=== PATIENT | male | born 1965 | race Caucasian/White ===

== ENCOUNTER 2024-12-15 17:11 | Outpatient (REF) | payer OTHER, SELFPAY | END 2024-12-15 17:12 | disposition home or self-care (01) | LOC: LBN 17:11 | PROVIDERS: PCP Internal Medicine; Visit Provider Physician Assistant Medical | DX: J02.9 Acute pharyngitis, unspecified (principal) | CPT/HCPCS: 87070 ==

== ENCOUNTER 2025-02-01 10:11 | Emergency (ER) | payer OTHER, SELFPAY ==
[2025-02-01 10:20] VITALS: BP 171/96; PULSE 56; RESP 20; TEMP 36.7; O2SAT 98
--- NOTE | 2025-02-01 10:54 | ED.GENADUL_ITS ---
Discharge Plan Disposition Patient Disposition: Home Condition: Stable Discharge Details Clinical Impression: Right groin pain, Acute right flank pain Primary Care Provider: Hernán Allan ED Provider: Leola Syed Home Meds and New Rx's Prescriptions: Continued bupropion HCl [Wellbutrin XL] 300 mg tablet extended release 24 hr 300 mg PO QAM citalopram [Celexa] 40 MG tablet 40 mg PO DAILY atorvastatin 20 mg tablet 20 mg PO DAILY Patient Comments: TAKE ONE TABLET BY MOUTH EVERY DAY Discharge Instructions Instructions: Managing acute pain at home, Pelvic Pain ED Additional Instructions: At this time no evidence of testicular torsion there is small bilateral hydroceles which is just a little bit of fluid around the testicles. You may wear supportive underwear for this or apply some ice to the area as tolerated. No evidence of kidney stone or infection or acute bleeding on the CT exam or your labs. Please apply ice on and off for the next couple of days, please take Tylenol or Ibuprofen with food every 4-6 hours as needed for pain and swelling. Follow up with primary care provider in 3-5 days. Return to ED sooner if any worsening or concerns. Thank you for allowing us to care for you today. Referrals: Hernán Allan [Primary Care Provider, Medicine] - 1 week Referral Note: Postop checkup, right groin pain Discharge Data Discharge Date/Time-TO BE ENTERED AT DEPARTURE: 02/01/25 14:02 HPI General Mode of arrival: ambulatory . Date/Time Provider Initiated Documentation: 02/01/25 10:17 . Limitations to Documentation: no limitations . Information obtained by: patient, RN notes reviewed and old records reviewed . HPI Narrative: 59-year-old male presents to the ER accompanied by his with a chief complaint of right testicular pain which he noticed around 4 this morning when he got up to urinate. Worse with standing. Has continued to increase in pain now rating up into his right flank. Denies any dysuria or burning with urination no penile discharge no lesions noted. Denies any recent injuries however he did have a colonoscopy at [facility] on Friday. Denies any nausea vomiting diarrhea. Past medical history includes hyperlipidemia olecranon bursitis Related Data Home Medications ?Medication ?Instructions ?Recorded ?Confirmed citalopram 40 mg tablet (Celexa) 40 mg PO DAILY 02/01/25 bupropion HCl 300 mg 24 hr tablet, 300 mg PO QAM 07/0902/01/25 extended release (Wellbutrin XL) atorvastatin 20 mg tablet 20 mg PO DAILY 02/01/2501/12 Allergies Allergy/AdvReac Type Severity Reaction Status Date / Time No Known Allergies Allergy Verified 02/01/25 10:19 General Stated Complaint: Male Reproductive Problem MARCELLO: 3 Review of Systems All systems reviewed & are unremarkable except as noted in HPI and below Gastrointestinal Gastrointestinal: Denies abdominal pain, Denies diarrhea, Denies nausea and Denies vomiting Genitourinary Genitourinary: Reports as per HPI, Denies dysuria, Reports flank pain, Denies penile discharge, Reports scrotal swelling, Reports testicular pain and Reports urinary hesitancy Exam General: CVA tenderness on the right Male General Exam: Yes erythema, No inguinal lymphadenopathy, No lacerations, No perineal induration and Yes tenderness Penis: normal penis, not edematous, not erythematous, no swelling, no ulcerations and no vesicles Meatus: meatus normal and no meatla discharge Scrotum: cremasteric reflex absent on the left, no ecchymosis, not edematous, erythematous, no inguinal hernias, no masses, no scrotal swelling, no ulcerations and no varicoceles Testes: no blue dot sign, no epidiymal masses, no testicular mass, testicular tenderness on the right, high-riding testicle on the right and other (Small redness in the right groin no induration or discharge) Course Vital Signs Vital signs: Vital Signs Temperature 36.7 C 02/01/25 10:20 Pulse 56 L 02/01/25 10:20 Respiratory Rate 02/01/25 10:20 Blood Pressure 171/96 H 02/01/25 10:20 Pulse Oximetry 98 02/01/25 10:20 Temperature 36.7 C 02/01/25 10:20 Temperature Source Oral 02/01/25 10:20 Pulse 56 L 02/01/25 10:20 Respiratory Rate 02/01/25 10:20 Blood Pressure 171/96 H 02/01/25 10:20 Blood Pressure Position Sitting 02/01/25 10:20 Pulse Oximetry 98 02/01/25 10:20 Oxygen Delivery Method Room Air 02/01/25 10:20 Oxygen Flow Rate 0 02/01/25 10:20 Pain Level 7 02/01/25 10:20 Medical Decision Making 59-year-old male presents to the ER accompanied by his with a chief complaint of right testicular pain which he noticed around 4 this morning when he got up to urinate. Worse with standing. Has continued to increase in pain now rating up into his right flank. Denies any dysuria or burning with urination no penile discharge no lesions noted. Denies any recent injuries however he did have a colonoscopy at [facility] on Friday. On exam he does have a high riding testicle, some mild erythema noted to his right groin, no lesions noted, absent cremasteric reflex on the right. Tenderness noted with palpation. No obvious hernias noted, Ultrasound scrotum ordered stat and urinalysis in lab. Will give ibuprofen and Zofran. Differential diagnosis includes but not limited to UTI, muscular strain, epididymitis, varicoceles, kidney stone, testicular torsion. Pulmonary result of the ultrasound is bilateral hydroceles informed by tech no testicular torsion. Will order CBC CMP and CT imaging to rule out kidney stone or other abnormality. No leukocytosis, CMP largely within normal limits no evidence of urinary tract infection. CT shows no acute intra-abdominal abnormality, there is some cholelithiasis without surrounding fluid or evidence of cholecystitis. Discussed labs and results with patient and family who verbalized understanding. Discharged in hemodynamically stable condition. Mother at questions were answered to the best of my ability. This text was generated using [employer] dictation system, please disregard any oddities of phrase or misspellings. Medical Records Medical records reviewed: Yes I reviewed the patient's medical records. Lab Data Lab results reviewed: Yes I reviewed the patient's lab results. Labs: Laboratory Tests Range/Units 02/01/25 02/01/25 10:26 11:42 WBC (4.4-10.8) 10^3/uL 5.64 RBC (4.36-5.78) 10^6/uL 5.32 Hgb (13.5-17.5) g/dL 15.0 Hct (40.0-50.0) % 44.8 MCV (80-95) fL 84 MCH (27.0-33.0) pg 28.2 MCHC (32.0-36.0) % 33.5 RDW (11.8-14.1) % 12.3 Plt Count (130-400) 10^3/uL 217 MPV (8.0-11.0) fL 10.5 Immature Gran % % 0.2 Neutrophils % % 71.6 Lymphocytes % % 19.9 Monocytes % % 6.0 Eosinophils % % 1.6 Basophils % % 0.7 Nucleated RBC % (0.0-0.3) % 0.0 Absolute Neutrophils (1.2-6.7) 10^3/uL 4.04 Absolute Lymphocytes (1.2-3.4) 10^3/uL 1.12 L Absolute Monocytes (0.1-0.8) 10^3/uL 0.34 Absolute Eosinophils (0.0-0.7) 10^3/uL 0.09 Absolute Basophils (0.0-0.2) 10^3/uL 0.04 Sodium (136-145) mmol/L 139 Potassium (3.5-5.1) mmol/L 4.1 Chloride (98-107) mmol/L 105 Carbon Dioxide (21.0-32.0) mmol/L 26.1 Anion Gap (3-11) mmol/L 7.9 BUN (7-18) mg/dL 11 Creatinine (0.70-1.30) mg/dL 1.0 Est GFR (CKD-EPI 2020) (mL/min/1.73m2) 87.24 Glucose (74-106) mg/dL 104 Calcium (8.5-10.1) mg/dL 9.3 Total Bilirubin (0.2-1.0) mg/dL 0.9 AST (15-37) U/L 28 ALT (16-63) U/L 44 Alkaline Phosphatase (46-116) U/L 87 Total Protein (6.4-8.2) g/dL 7.5 Albumin (3.4-5.0) g/dL 3.9 Urine Color (Yellow) Yellow Urine Clarity (Clear) Clear Urine pH (5-8) 6.5 Ur Specific Markle (1.005-1.025) 1.020 Urine Protein (Neg-Trace) mg/dL Negative Urine Ketones (Negative) mg/dL Negative Urine Blood (Negative) Negative Urine Nitrite (Negative) Negative Urine Bilirubin (Negative) Negative Urine Urobilinogen (Up to 0.2) mg/dL 0.2 Ur Leukocyte Esterase (Negative) Negative Urine Glucose (Negative) mg/dL Negative PFSH All Active Problems Acute right flank pain (Acute) Right groin pain (Acute) Olecranon bursitis of left elbow (Acute ~04/2024) Social History Smoking/Tobacco Use Status: Never Smoking risk assessment performed?: Yes Drug use: Never Housing: house Do you feel safe at home: Yes Do you feel safe in your relationship?: Yes
--- NOTE | 2025-02-01 10:55 | DI.US_ITS ---
Exam(s) US SCROTUM EXAM: US SCROTUM CLINICAL HISTORY: Right testicular pain. TECHNIQUE: Scrotal ultrasound performed using grayscale, color-flow and spectral Doppler analysis. COMPARISON: No exams were available for comparison FINDINGS: RIGHT TESTICLE: 4.6 x 2.4 x 3.6 cm Echogenicity: Normal. Contour: Smooth. Mass: None seen. Microlithiasis: None. Hydrocele: Small Varicocele: None. Hernia: No peristalsing bowel loop identified. Epididymis: Normal. Scrotum: Normal. LEFT TESTICLE: 3.9 x 2.9 x 3.3 cm Echogenicity: Normal. Contour: Smooth. Mass: None seen. Microlithiasis: None. Hydrocele: Small Varicocele: None. Hernia: No peristalsing bowel loop identified. Epididymis: Normal. Scrotum: Normal. DOPPLER: Color: Symmetric and uniform, no hyperemia. Duplex: Bilateral testicular arterial waveforms visualized. IMPRESSION: Normal appearing bilateral testicles. Small bilateral hydroceles. DATA REPOSITORY:
[2025-02-01 11:03] LABS: Glucose Negative (Negative)
--- NOTE | 2025-02-01 11:15 | DI.CT_ITS ---
Exam(s) CT ABDOMEN PELVIS W EXAM: CT ABDOMEN PELVIS W CLINICAL HISTORY: Right flank pain, S/P colonoscopy. TECHNIQUE: Imaging Protocol: Axial computed tomography images with coronal and sagittal reformatted images were created and reviewed CONTRAST MATERIAL: Intravenous: Omnipaque 350 Contrast volume:100 ml Oral: no COMPARISON: No exams were available for comparison FINDINGS: ABDOMEN and PELVIS: Lung Bases: No acute findings. Liver: Mild hepatic steatosis. No suspicious mass. Gallbladder and biliary tract: A few tiny calculi are noted in the dependent portion no wall thickening or pericholecystic fluid. No biliary dilation. Pancreas: Normal density. No abnormal calcifications or inflammatory process. No evidence of mass. Spleen: Normal. Kidneys: Normal size, contour and axis. No radiodense stones. No obstructive uropathy. No suspicious masses seen. Adrenal glands: No masses seen. Vasculature: Abdominal aorta non-dilated. Soft tissues: Unremarkable. Bladder: No gross wall thickening. No calculi.No focal mass. Bowel: No obstruction. No bowel wall thickening. Appendix normal. Peritoneal cavity: No ascites. No focal collection. No mesenteric inflammatory response. No free air. Bones: Unrem mild scoliosis and degenerative changes. Reproductive organs: The prostate is enlarged and contains calcifications. Lymph nodes: No pathologically enlarged lymph nodes. IMPRESSION:: No acute abnormality in the abdomen or pelvis. Cholelithiasis. RADIATION DOSE DELIVERED: 634mGy.cm Total DLP DATA REPOSITORY: All CT scans at this facility are submitted to the National Radiology Data Registry (NRDR) Dose Index Registry (DIR) with the [employer] (ACR). RADIATION OPTIMIZATION: All CT scans at this facility use at least one of these dose optimization techniques: automated exposure control; mA and/or kV adjustment per patient size (includes targeted exams where dose is matched to clinical indication); or iterative reconstruction.
[2025-02-01 11:56] LABS: Abs Immature Grans 0.01 10^3/uL (0.0-0.06); HCT 44.8 % (40.0-50.0); HGB 15.0 g/dL (13.5-17.5); Immature Grans % 0.2 %; MCH 28.2 pg (27.0-33.0); MCHC 33.5 % (32.0-36.0); MCV 84 fL (80-95); MPV 10.5 fL (8.0-11.0); Platelet Count 217 10^3/uL (130-400); RBC 5.32 10^6/uL (4.36-5.78); RDW 12.3 % (11.8-14.1); RDW-SD 37.2 fL; WBC 5.64 10^3/uL (4.4-10.8)
[2025-02-01] MEDS: ACETAMINOPHEN 1,000 MG/100 ML BAG 400 MG IVPB (12:03)
[2025-02-01 12:12] LABS: ALT 44 U/L (16-63); AST 28 U/L (15-37); Albumin 3.9 g/dL (3.4-5.0); Alkaline Phosphatase 87 U/L (46-116); Anion Gap 7.9 mmol/L (3-11); BUN 11 mg/dL (7-18); Bilirubin, Total 0.9 mg/dL (0.2-1.0); CO2 26.1 mmol/L (21.0-32.0); Calcium 9.3 mg/dL (8.5-10.1); Chloride 105 mmol/L (98-107); Estimated GFR 87.24 (mL/min/1.73m2); Glucose 104 mg/dL (74-106); Potassium 4.1 mmol/L (3.5-5.1); Sodium 139 mmol/L (136-145); Total Protein 7.5 g/dL (6.4-8.2)
[2025-02-01] MEDS: Omnipaque 350 MG/ML 100 ML BTL IJ (12:32)
[2025-02-01] MEDS: Normal Saline - Diluent 50 ML VIAL IJ (12:33)
[2025-02-01 13:45] VITALS: BP 152/78; PULSE 58; RESP 20; TEMP 36.7; O2SAT 98
== END 2025-02-01 14:02 | disposition home or self-care (01) ==
PROVIDERS: Emergency Provider Registered Nurse Emergency; PCP Internal Medicine
DX: R10.31 Right lower quadrant pain (principal); N43.3 Hydrocele, unspecified
CPT/HCPCS: 80053; 96365; 99285; 74177; 76870; 81003; 85025; J0131; J3490

== ENCOUNTER 2025-04-13 08:31 | Outpatient (CLI) | payer OTHER, SELFPAY | END 2025-04-13 08:32 | disposition home or self-care (01) | PROVIDERS: PCP Internal Medicine; Visit Provider Urology | DX: R97.20 Elevated prostate specific antigen [PSA] (principal) | CPT/HCPCS: 36415; 84153 ==

== ENCOUNTER 2025-04-17 18:10 | Emergency (ER) | payer OTHER, SELFPAY ==
[2025-04-17] VITALS (17 sets, daily range): BP systolic 121–130; BP diastolic 66–75; PULSE 86–98; RESP 18; TEMP 37.6; O2SAT 92–98
--- NOTE | 2025-04-17 18:28 | W.ED.GENAD ---
Discharge Plan Disposition Patient Disposition: Home Discharge Details Clinical Impression: Enteritis, Elevated bilirubin Primary Care Provider: Hernán Allan ED Provider: Galina Brian Home Meds and New Rx's Prescriptions: No Action bupropion HCl [Wellbutrin XL] 300 mg tablet extended release 24 hr 300 mg PO QAM citalopram [Celexa] 40 MG tablet 40 mg PO DAILY atorvastatin 20 mg tablet 20 mg PO DAILY Patient Comments: TAKE ONE TABLET BY MOUTH EVERY DAY Discharge Instructions Additional Instructions: Please call your primary care provider first thing in the morning to schedule follow-up appointment to have your bilirubin rechecked and to discuss today's emergency department visit Your workup today was reassuring. Labs were unremarkable other than isolated bilirubin, this is something that should be evaluated on outpatient basis Please follow a clear liquid diet for the next 24 to 48 hours to help rest your gut. You may use Tylenol ibuprofen as needed for discomfort. Heating pad may also provide some comfort. Turn to emergency care if you develop new severe abdominal pain, uncontrollable vomiting, fevers associate abdominal pain, or if you are very worried and need to be rechecked again immediately. Referrals: Hernán Allan [Primary Care Provider, Medicine] HPI General Date/Time Provider Initiated Documentation: 04/17/25 18:12. HPI Narrative: Winston is a 59-year-old male who presents to the emergency department today for evaluation of generalized abdominal pain, bloating, nausea, and constipation since last night. Discomfort began around 2267-9366 hours, characterized by stomach pain, nausea, and disrupted sleep. Pain localized below navel, accompanied by bloating. Reports feverish and cold sensations during the night (no recorded fever), dizziness, and muscle aches. Denies congestion, sore throat, chest pain, dyspnea, vomiting, black/tarry/bloody stools. Regular bowel movements, last one yesterday morning. No bowel movement today, unusual for him. Previous colonoscopies showed minor polyps, most recent this summer. PMH: On atorvastatin for hypercholesterolemia. Denies history of abdominal surgery. Related Data Home Medications ?Medication ?Instructions ?Recorded ?Confirmed citalopram 40 mg tablet (Celexa) 40 mg PO DAILY 03/16/13 04/17/25 bupropion HCl 300 mg 24 hr tablet, 300 mg PO QAM 07/09/24 04/17/25 extended release (Wellbutrin XL) atorvastatin 20 mg tablet 20 mg PO DAILY 02/01/25 04/17/25 Allergies Allergy/AdvReac Type Severity Reaction Status Date / Time No Known Allergies Allergy Verified 04/17/25 18:23 General Stated Complaint: Abd Prob MARCELLO: 3 Exam Narrative Exam Narrative: General Appearance: Normal. Vital signs: Within normal limits. HEENT: Moist mucous membranes, oropharynx clear, no lesions. Tongue midline. Respiratory: Easy work of breathing, lungs clear bilaterally. Gastrointestinal: Abdomen softly distended, diffusely tender to palpation. Bowel sounds present in all quadrants. Skin: Warm and dry, no rash. Psychiatric: Normal. Course Vital Signs Vital signs: Vital Signs Temperature 37.6 C 04/17/25 18:16 Pulse 96 H 04/17/25 18:16 Respiratory Rate 18 04/17/25 18:16 Blood Pressure 121/75 04/17/25 18:16 Pulse Oximetry 96 04/17/25 18:16 Temperature 37.6 C 04/17/25 18:22 Temperature Source Oral 04/17/25 18:22 Pulse 96 H 04/17/25 18:22 Respiratory Rate 18 04/17/25 18:22 Blood Pressure 121/75 04/17/25 18:22 Blood Pressure Position Sitting 04/17/25 18:22 Pulse Oximetry 96 04/17/25 18:22 Oxygen Delivery Method Room Air 04/17/25 18:16 Oxygen Flow Rate 0 04/17/25 18:16 Pain Level 7 04/17/25 18:16 Medical Decision Making Initial Assessment: 59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 No vomiting, normal urination and bowel movements. Differential Diagnosis includes but is not limited to: Partial bowel obstruction, colitis/enteritis, pancreatitis, gastritis, other electrolyte abnormality ED Course: - IV fluids administered - Toradol for pain management - CT abdomen ordered - Blood work ordered I independently interpreted the following tests: CBC and lactate reassuring. Potassium slightly low at 3.4. Elevated bilirubin, 2.9 with direct bili 0.4. UA notable for elevated bilirubin. CT been/pelvis consistent with enteritis, no other acute findings noted. Final Assessment: Abdominal pain associated with enteritis, possibly related to recent food ingestion, though viral enteritis also possible. Discussed case with Dr. Olea, general surgery. She agrees with assessment, recommends cleared liquids and outpatient follow-up for hyperbilirubinemia. Clinical Impression: - Abdominal pain - Isolated elevated bilirubin Reviewed discharge instructions with patient, including symptomatic management, importance of follow-up for evaluation of elevated bilirubin, and red flags indicating need for return to emergency care. He voices agreement with plan of care Follow-Up: Patient consented to the use of [facility] Imaging Data Radiologic Study: Radiologist's impression: PROCEDURE INFORMATION: Exam: CT Abdomen And Pelvis With Contrast Exam date and time: 04/17/2025 6:58 PM Age: 59 years old Clinical indication: Abdominal pain; Localized; Lower abd pain, nausea, diarrhea TECHNIQUE: Imaging protocol: Computed tomography of the abdomen and pelvis with contrast. COMPARISON: CT ABDOMEN PELVIS W 02/01/2025 12:30 PM FINDINGS: Lungs: The lungs are clear. Liver: The liver has a normal appearance. Gallbladder and biliary ducts: Multiple calcified stones are present in the gallbladder fundus. No gallbladder wall thickening or pericholecystic fluid. Pancreas: The pancreas demonstrates normal size. No pancreatic ductal dilatation. Spleen: The spleen demonstrates normal size. A small splenule is present adjacent to the spleen. Adrenal glands: The adrenal glands have a normal appearance. Kidneys and ureters: The kidneys are normal in size. There is a low-density left renal cyst. No hydronephrosis. No hydroureter or ureterolithiasis. Stomach and bowel: The bowel demonstrates overall normal caliber and wall thickness. There is moderate dilatation of the proximal small bowel which is fluid and gas-filled. However, there is no wall thickening or perienteric fat stranding. Appendix: The appendix is not visualized; however there are no ancillary findings to suggest acute appendicitis such as free right lower quadrant fluid or perienteric fat stranding. Intraperitoneal space: Unremarkable. No free air. No significant fluid collection. Vasculature: The IVC and aorta have a normal appearance. Lymph nodes: No enlarged lymph nodes. Urinary bladder: The bladder is thin walled and fluid filled. The bladder is thin walled and fluid filled. Reproductive: Unremarkable as visualized. Bones/joints: Bones have a normal appearance. No acute fracture or suspicious bone lesion. Soft tissues: Unremarkable. IMPRESSION: 1. Moderate dilatation of the proximal small bowel without wall thickening or perienteric fat stranding. Additionally, there is tapered narrowing to normal caliber small bowel within the mid and distal small intestine. This is a nonspecific finding which may be associated with a mild acute enteritis. There are no definite findings to suggest obstruction or ileus at this time. 2. The appendix is not visualized; however there are no ancillary findings to suggest acute appendicitis. 3. Cholelithiasis. No findings to suggest choledocholithiasis or acute cholecystitis PFSH All Active Problems (Updated 04/17/25 @ 20:25 by Galina Ga) Elevated bilirubin (Acute) Enteritis (Acute) Olecranon bursitis of left elbow (Acute ~04/2024) Social History Smoking/Tobacco Use Status: Never Smoking risk assessment performed?: Yes Alcohol Intake: never Drug use: Never Substance use type: does not use Housing: house Do you feel safe at home: Yes Do you feel safe in your relationship?: Yes
--- NOTE | 2025-04-17 18:30 | RT.EKG_ITS ---
APPROVED REPORT Exam: Resting ECG Reason for Exam: r/o prolonged QTc Patient Location: E HR:87 bpm ECG Measurements Heart Rate 87 AXIS NV 152 P 38 QRSd 94 QRS -14 QT 359 T 7 QTc 433 Conclusion Sinus rhythm...normal P axis, V-rate 60- 99 No STEMI
--- NOTE | 2025-04-17 18:30 | DI.CT_ITS ---
Exam(s) CT ABDOMEN PELVIS W EXAM: CT ABDOMEN PELVIS W CLINICAL HISTORY: lower abd pain, nausea, diarrhea TECHNIQUE: Imaging Protocol: Axial computed tomography images with coronal and sagittal reformatted images were created and reviewed. CONTRAST MATERIAL: Intravenous: Omnipaque 350 Contrast volume:100 mL Oral: No COMPARISON: CT CT ABDOMEN PELVIS W from 02/01/2025 FINDINGS: ABDOMEN: Lung Bases: There is a 3 mm pulmonary nodule in the left lower lobe. Liver: There is diffuse decreased attenuation of the liver suggesting fatty infiltration. No measurable mass. Portal, Superior Mesenteric, and Splenic Veins: Unremarkable. Gallbladder and Biliary Tract: Gallstones are present. There is no biliary ductal dilatation. Pancreas: Normal density, no abnormal calcifications or inflammatory process. Spleen: Normal. Adrenals: No masses seen. Kidneys: Normal size, contour and axis. No radiodense stones or obstructive uropathy. There is a simple cyst in the left kidney. No follow-up is recommended. Abdominal Aorta: Abdominal portion non-dilated. Bowel: There are fluid-filled loops of small and large bowel which can be seen with a diarrheal illness/enterocolitis. There is mild bowel wall thickening seen in the proximal small bowel suspicious for an enteritis. No transition point is seen to suggest an obstruction. There is no evidence of an a ppendicitis. Peritoneal Cavity: No ascites, collection or mesenteric inflammatory response. No free air. Lymph Nodes: Within normal limits. Bones: Within normal limits for the patient's age. Soft Tissues: There is a tiny fat containing umbilical hernia. PELVIS: Bladder: Symmetric distention, no gross wall thickening. Reproductive Organs: The prostate gland is at the upper limits of normal in size. Prostatic calcifications are present. Lymph Nodes: Within normal limits. Bones: Within normal limits for the patient's age. IMPRESSION: 1. Mild wall thickening seen in the proximal small bowel. Fluid is seen throughout the small and large bowel. The findings are suspicious for an enteritis. 2. 3 mm left lower lobe pulmonary nodule. Solid nodules smaller than 6 mm do not require routine follow-up in all patients with high clinical risk; however, some nodules smaller than 6 mm with suspicious morphology, upper lobe location, or both may warrant follow-up at 12 months (grade 2A; weak recommendation, high-quality evidence). (Abundio et al., 2017) Single solid noncalcified nodules. ???Solid nodules smaller than 6 mm (those 5 mm or smaller) do not require routine follow-up in patients at low risk (grade 1C; strong recommendation, low- or [id number] evidence). (Abundio et al., 2017) 3. Fatty infiltration of the liver. 4. Cholelithiasis. No CT evidence of acute cholecystitis. 5. The preliminary [facility] report was reviewed. RADIATION DOSE DELIVERED: 562.96mGy.cm Total DLP DATA REPOSITORY: All CT scans at this facility are submitted to the National Radiology Data Registry (NRDR) Dose Index Registry (DIR) with the [employer] (ACR). RADIATION OPTIMIZATION: All CT scans at this facility use at least one of these dose optimization techniques: automated exposure control; mA and/or kV adjustment per patient size (includes targeted exams where dose is matched to clinical indication); or iterative reconstruction.
[2025-04-17 18:45] LABS: Abs Immature Grans 0.01 10^3/uL (0.0-0.06); HCT 45.3 % (40.0-50.0); HGB 15.4 g/dL (13.5-17.5); Immature Grans % 0.1 %; MCH 28.1 pg (27.0-33.0); MCHC 34.0 % (32.0-36.0); MCV 83 fL (80-95); MPV 10.5 fL (8.0-11.0); Platelet Count 216 10^3/uL (130-400); RBC 5.49 10^6/uL (4.36-5.78); RDW 12.8 % (11.8-14.1); RDW-SD 38.5 fL; WBC 7.16 10^3/uL (4.4-10.8)
[2025-04-17] MEDS: Omnipaque 350 MG/ML 100 ML BTL IJ (18:47)
[2025-04-17] MEDS: Normal Saline Flush 10 ML SYR IVP (18:48)
[2025-04-17] MEDS: Normal Saline - Diluent 50 ML VIAL IJ (18:48)
[2025-04-17] MEDS: Normal Saline 1,000 ML 1000 ML IV (18:50)
[2025-04-17] MEDS: Ondansetron 4 MG/2 ML VIAL IVP (18:50)
[2025-04-17] MEDS: Ketorolac 15 MG/ML VIAL IVP (18:50)
[2025-04-17 19:03] LABS: ALT 43 U/L (16-63); AST 24 U/L (15-37); Albumin 4.0 g/dL (3.4-5.0); Alkaline Phosphatase 91 U/L (46-116); Anion Gap 14.6 mmol/L (3-11); BUN 21 mg/dL (7-18); Bilirubin, Total 2.9 mg/dL (0.2-1.0); CO2 21.4 mmol/L (21.0-32.0); Calcium 9.2 mg/dL (8.5-10.1); Chloride 104 mmol/L (98-107); Estimated GFR 70.10 (mL/min/1.73m2); Glucose 137 mg/dL (74-106); Potassium 3.4 mmol/L (3.5-5.1); Sodium 140 mmol/L (136-145); Total Protein 7.7 g/dL (6.4-8.2)
[2025-04-17 19:32] LABS: Glucose Negative (Negative)
[2025-04-17 19:33] LABS: Bilirubin, Direct 0.4 mg/dL (0.0-0.2)
[2025-04-17 19:40] LABS: C & S Indicated? No; RBC 0-2 HPF (0-2); WBC 0-2 HPF (0-5)
[2025-04-17 19:56] LABS: COVID-19 PCR Negative (Negative); RSV PCR Negative (Negative)
--- NOTE | 2025-04-17 20:05 | DI.VRAD_ITS ---
PROCEDURE INFORMATION: Exam: CT Abdomen And Pelvis With Contrast Exam date and time: 04/17/2025 6:58 PM Age: 59 years old Clinical indication: Abdominal pain; Localized; Lower abd pain, nausea, diarrhea TECHNIQUE: Imaging protocol: Computed tomography of the abdomen and pelvis with contrast. COMPARISON: CT ABDOMEN PELVIS W 02/01/2025 12:30 PM FINDINGS: Lungs: The lungs are clear. Liver: The liver has a normal appearance. Gallbladder and biliary ducts: Multiple calcified stones are present in the gallbladder fundus. No gallbladder wall thickening or pericholecystic fluid. Pancreas: The pancreas demonstrates normal size. No pancreatic ductal dilatation. Spleen: The spleen demonstrates normal size. A small splenule is present adjacent to the spleen. Adrenal glands: The adrenal glands have a normal appearance. Kidneys and ureters: The kidneys are normal in size. There is a low-density left renal cyst. No hydronephrosis. No hydroureter or ureterolithiasis. Stomach and bowel: The bowel demonstrates overall normal caliber and wall thickness. There is moderate dilatation of the proximal small bowel which is fluid and gas-filled. However, there is no wall thickening or perienteric fat stranding. Appendix: The appendix is not visualized; however there are no ancillary findings to suggest acute appendicitis such as free right lower quadrant fluid or perienteric fat stranding. Intraperitoneal space: Unremarkable. No free air. No significant fluid collection. Vasculature: The IVC and aorta have a normal appearance. Lymph nodes: No enlarged lymph nodes. Urinary bladder: The bladder is thin walled and fluid filled. The bladder is thin walled and fluid filled. Reproductive: Unremarkable as visualized. Bones/joints: Bones have a normal appearance. No acute fracture or suspicious bone lesion. Soft tissues: Unremarkable. IMPRESSION: 1. Moderate dilatation of the proximal small bowel without wall thickening or perienteric fat stranding. Additionally, there is tapered narrowing to normal caliber small bowel within the mid and distal small intestine. This is a nonspecific finding which may be associated with a mild acute enteritis. There are no definite findings to suggest obstruction or ileus at this time. 2. The appendix is not visualized; however there are no ancillary findings to suggest acute appendicitis. 3. Cholelithiasis. No findings to suggest choledocholithiasis or acute cholecystitis. Dictated and Authenticated by: Sarah Troncoso MD. Orderin Bereket Mojica MD
--- NOTE | 2025-04-18 17:02 | NUR.NOTE ---
Access chart to determine if a referral had been put in on this patient. Nursing Note:
== END 2025-04-17 20:30 | disposition home or self-care (01) ==
PROVIDERS: Emergency Provider Nurse Practitioner Family; PCP Internal Medicine
DX: K52.9 Noninfective gastroenteritis and colitis, unspecified (principal); R17 Unspecified jaundice; R42 Dizziness and giddiness
CPT/HCPCS: 80053; 87637; 93005; 96361; 96374; 96375; 99285; 74177; 81003; 81015; 82248; 83605; 85025; 93010; 99284; J1885; J2405; J3490